=== PATIENT | female | born 1995 | race Caucasian/White ===

== ENCOUNTER 2023-11-24 09:10 | Outpatient (AMB) | payer OTHER, SELFPAY ==
--- NOTE | 2023-11-24 10:23 | MHC.OFFWIV ---
Intake Vital Signs 11/24/23 10:25 Height 5 ft 1 in Weight 149 lb 4 oz BMI 28.2 BP 122/80 Blood Pressure Location Lt brachial Position Sitting Pulse 83 Pulse Source Pulse Oximeter Temp 98.1 F Temp Source Oral Pulse Oximetry (%) 99 Oxygen Delivery Method Room Air Intake Visit Reasons: Ep, cough, sore throat, fatigue ([phone]) Intake Note: Pt is here for c.o sore throat, fatigue, loss of voice Patient Tobacco Use Status: Never used Tobacco Allergies amoxicillin Allergy (Mild, Verified 11/24/23 10:24) Rash benzoyl peroxide Allergy (Mild, Verified 11/24/23 10:24) Rash Do you need a note to return to daycare/school/sports/work: Yes HPI HPI Comments History of Present Illness Details Patient is a 28-year-old female in today for a sick visit. She has a past medical history significant for asthma, she is currently not taking any medications for this. She developed symptoms of cough, headache, sore throat, chest tightness, 4 days prior to arrival. She is a current employee [employer] and is around many sick patients during the day. Denies any nausea, vomiting, chest pain, dizziness, SOB, diarrhea. Patient does report that she feels like her chest is tight. Denies recent travel. Little relief with [id number]-xeittab medication. [facility] Social History Patient Tobacco Use Status: Never used Tobacco Review of Systems Const Details: Constitutional : No Weight loss, No Fever, No Chills, No Fatigue, No Malaise ENT/Mouth : Admits sore throat, Admits Rhinorrhea, No ear pain. Eyes: No Eye Pain, No Swelling, No Redness Cardiovascular : No Chest Pain, No SOB, No Dyspnea on Exertion, No Orthopnea, No Edema, No Palpitations Respiratory : Admits Cough, No Sputum, Admits Wheezing Gastrointestinal : No Nausea, No Vomiting, No Diarrhea, No Constipation, No abdominal Pain, No Hematochezia, No Melena Genitourinary : No Dysuria, No Urinary Frequency, No Hematuria, Musculoskeletal : No joint pain, No Myalgias, No Joint Swelling Neuro : No Weakness, No Numbness, No Dizziness, No Headache All other systems reviewed and are negative Physical Exam Vital Signs: Last Vital Signs Temp 98.1 F 11/24/23 10:25 Pulse 83 11/24/23 10:25 BP 122/80 11/24/23 10:25 Pulse Ox 99 11/24/23 10:25 Oxygen Delivery Method Room Air 11/24/23 10:25 BMI result Body Mass Index 28.2 Vital signs reviewed and stable Const Other: Appearance: Alert.? Oriented X3.? No acute distress.? ENT: Pharynx erythema, no exudate. Tonsils plus 1. TM intact, pearly bain.? Neck: Normal inspection.? Neck supple.?Full ROM. CVS: Normal heart rate and rhythm.? Pulses normal.? Respiratory: No respiratory distress. Positive for bilateral upper lobe wheeze? Neuro: Oriented X 3.? No motor deficit.? No sensory deficit. CN 2-12 intact After in office nebulizer treatment patient's wheeze improved, but still present. Office Procedures Nebulizer Treatment Nebulizer Treatment [id number]/[id number] RX initial, or Nebulizer Subsequent Treatment Office Meds ipratropium 0.5 mg-albuterol 3 mg (2.5 mg base)/3 mL nebulization soln Performing Provider: HENRIQUE Gonzalez Performing Location: [facility] Administered by: HENRIQUE Gonzalez on 11/24/23 11:15 Dose Route Admin Location Dispensed Lot Number Expiration Date FORMERLY NAMED [facility] Field Support Rep 3 mL inhalation 3 mL [id number] 08/22/24 5870-7197-67 [facility] Results AMB Rapid Strep AMB Rapid Strep Negative Last Edit by Cosmo Raza CMA on 11/24/23 10:54 Results Reviewed Results Reviewed: Will call patient with swab result Assessment & Plan Assessment & Plan (1) Upper respiratory infection: Comment: Patient improve slightly in office after nebulizer treatment. She will be given prednisone, benzonatate, and azithromycin to be taken as prescribed. Patient has been educated on the side effects of these medications. Patient will also be given an albuterol inhaler to be used as needed as hers has run out Code(s): J06.9 - Acute upper respiratory infection, unspecified Qualifiers: URI type: unspecified URI Qualified Code(s): J06.9 - Acute upper respiratory infection, unspecified Plan: Take your medications as prescribed. If you were prescribed antibiotics today, it is important that you take your medication to their entirety, do not skip any doses, do not finish them early. Follow-up with your primary care provider this week. Return to the emergency department with new or worsening symptoms. Such as fevers, chills, chest pain, shortness of breath, nausea, vomiting, dizziness, headache, vision changes, lethargy In case of emergency call 911 Plan Follow-up with PCP Orders: Orders SARS-CoV2/FLU/RSV Today J06.9 - Acute upper respiratory infection, unspecified AMB Nebulizer Treatment Today R06.2 - Wheezing AMB Rapid Strep Screen Today Z13.9 - Encounter for screening, unspecified Coding Level of Care Code Est Pt Level 3 (54705) Diagnoses Upper respiratory tract infection, unspecified type J06.9 URI type: unspecified URI CPT Codes Nebulizer Treatment - Nebulizer Treatment, initial or subsequent: [id number]/MDI RX initial, or Nebulizer Subsequent Treatment ([id number]) Time Spent (min) 25
[2023-11-24 10:25] VITALS: BP 122/80; PULSE 83; TEMP 36.7; O2SAT 99; BMI 28.2
== END 2023-11-24 11:19 | disposition home or self-care (01) ==
PROVIDERS: Visit Provider Nurse Practitioner Primary Care
DX: R06.2 Wheezing (principal); J02.9 Acute pharyngitis, unspecified
CPT/HCPCS: 87880; 94640; 99213; J7620

== ENCOUNTER 2023-11-24 13:25 | Outpatient (REF) | payer OTHER, SELFPAY | END 2023-11-24 13:26 | disposition home or self-care (01) | LOC: HO.HMGCLNP 13:25 | PROVIDERS: Visit Provider Nurse Practitioner Primary Care | DX: Z11.52 Encounter for screening for COVID-19 (principal); J06.9 Acute upper respiratory infection, unspecified | CPT/HCPCS: 0241U ==

== ENCOUNTER → 2025-04-10 08:03 | Outpatient (BNVA) | payer SELFPAY | PROVIDERS: PCP Internal Medicine; Visit Provider Physician Assistant Medical | DX: Z13.89 Encounter for screening for other disorder (principal) | CPT/HCPCS: 73564 ==

== ENCOUNTER → 2025-04-12 08:10 | Outpatient (BNVA) | payer OTHER, SELFPAY | PROVIDERS: PCP Internal Medicine; Visit Provider Physician Assistant Medical | DX: Z13.89 Encounter for screening for other disorder (principal) | CPT/HCPCS: 99213 ==